=== PATIENT | female | born 1965 | race Caucasian/White ===

== ENCOUNTER → 2020-06-25 | Outpatient (CLI) | payer OTHER, BC ==
[~2020-06-25] MED LIST: ADVAIR 250-501 EACH INH; ATARAX PO; BACLOFEN20 MG PO; FOLIC ACID1 MG PO; GEODON40 MG PO; LAMICTAL100 MG PO; LEXAPRO 10 MG T10 M2 PO; METHOTREXATE 22.5 MG PO; NEURONTIN 300M300 M2 PO; NEURONTIN300 MG PO; OMEPRAZOLE40 MG PO; PROAIR HFA8.5 GM INH; PROZAC20 M1 PO; REMICADE 1100 MG/VIA; REQUIP XL6 MG PO; ZYPREXA 10 MG T10 MG PO
== END ==
LOC: LAB 10:45
DX: Z01.812 Encounter for preprocedural laboratory examination (principal); Z20.828 Contact with and (suspected) exposure to other viral communicable diseases

== ENCOUNTER 2020-07-02 06:06 | Inpatient (IN) | payer OTHER, BC ==
[2020-06-25 13:32] LABS: ABSOLUTE NEUTROPHILS 4.5 thou/uL (1.4-8.2); BASOPHILS 0.9 % (0.0-2.0); EOSINOPHILS 2.3 % (0.0-3.0); HEMATOCRIT 36.3 % (37.0-47.0); HEMOGLOBIN 12.1 gm/dL (12.0-15.0); MCH 29.1 pg (26.0-34.0); MCHC 33.3 g/dL (28.0-37.0); MCV 87.3 fL (80.0-100.0); MONOCYTES 7.2 % (1.0-8.0); PLATELET COUNT 456 thou/uL (150-400); POLYS 63.6 % (36.0-66.0); RBC 4.16 mil/uL (4.20-5.00); URINE BILIRUBIN NEGATIVE (Negative); URINE BLOOD NEGATIVE (Negative); URINE CLARITY CLEAR; URINE COLOR YELLOW; URINE GLUCOSE-RANDOM* NEGATIVE (Negative); URINE KETONES NEGATIVE (Negative); URINE LEUKOCYTES-REFLEX NEGATIVE (Negative); URINE NITRITE-REFLEX NEGATIVE (Negative); URINE PROTEIN (DIPSTICK) NEGATIVE (Negative); URINE SPECIFIC GRAVITY <= 1.005 (1.005-1.035); URINE UROBILINOGEN 0.2 E.U./dl (0.2-1.0); WBC 7.1 thou/uL (4.0-11.0)
[2020-06-25 13:44] LABS: PROTIME 9.9 Seconds (9.3-11.4)
[2020-06-25 13:57] LABS: ALBUMIN 2.8 g/dL (3.4-5.0); CALCIUM 8.5 mg/dL (8.5-10.1); CREATININE 0.9 mg/dL (0.6-1.0); MAGNESIUM 1.9 mg/dL (1.8-2.4); POTASSIUM 4.5 mmol/L (3.5-5.1); TOTAL BILIRUBIN 0.2 mg/dL (0.2-1.0); TOTAL PROTEIN 7.1 g/dL (6.4-8.2)
[~2020-07-02] VITALS: Ht 162.6 cm; Wt 72.6 kg
[2020-07-02 07:47] VITALS: BP 126/68
[2020-07-02 12:30] VITALS: BP 130/70
--- NOTE | 2020-07-02 13:30 | NUR ---
ASSESSMENT: CM REVIEWED CHART. CM SPOKE WITH PATIENT. PT IS HERE DUE TO NECK PAIN. PT REPORTS THAT SHE WAS LIVING WITH HER MOTHER IN A HOUSE IN [facility] BUT REPORTS IT FLOODED SO THEY HAVE BEEN STAYING WITH HER SISTER WHO ALSO LIVES IN [place], [place]. SHE REPORTS SHE PLANS ON LIKELY GOING BACK THERE AT DISCHARGE. PT REPORTS SHE IS NORMALLY INDEPENDENT WITH ADLS AND AMBULATION. PT REPORTS THAT SHE HAS NOT HAD HH IN THE PAST NOR BEEN TO A SNF. PT REPORTS HER PCP IS DR. SANDEEP DIAZ IN [place], [place]. CM WILL CONTINUE TO FOLLOW TO ASSIST NEEDED.
--- NOTE | 2020-07-02 15:40 | O ---
[facility] [place] [address] OPERATIVE REPORT Name: SKYE MARIA Room #: 439-P ADM IN M.R.#: [id number] Admission: 07/02/20 Attend Phys: Frank Cota MD Discharge: Date of : 69 Report #: [id number] THIS REPORT FOR: cc: AISHA ROSAS NP, Glenn M MD ~ CC: AISHA Cota DATE OF SERVICE: 07/02/2020 PREPROCEDURAL DIAGNOSES: Degenerative disk disease, spinal stenosis, foraminal stenosis, herniated nucleus pulposus at C3-C4, C4-C5, C5-C6 and C6-C7. The patient also has a spondylolisthesis with instability at C3-C4 and radiculopathy at C3-C4, C4-C5, C5-C6, C6-C7 and myelomalacia at C4-C5. The patient has neck pain in addition. POSTPROCEDURAL DIAGNOSES: Degenerative disk disease, spinal stenosis, foraminal stenosis, herniated nucleus pulposus at C3-C4, C4-C5, C5-C6 and C6-C7. The patient also has a spondylolisthesis with instability at C3-C4 and radiculopathy at C3-C4, C4-C5, C5-C6, C6-C7 and myelomalacia at C4-C5. The patient has neck pain in addition. PROCEDURES: Anterior total diskectomy C3-C4, anterior total diskectomy C4-C5, anterior total diskectomy C5-C6, anterior total diskectomy C6-C7, anterior partial corpectomy C3, anterior partial corpectomy C4, anterior partial corpectomy C5, anterior partial corpectomy C6, posterior neural foraminal decompressions C3-C4, posterior neural foraminal decompression C4-C5, posterior neural foraminal decompression C5-C6, posterior neural foraminal decompression C6-C7, anterior interbody fusion C3-C4, anterior interbody fusion C4-C5, anterior interbody fusion C5-C6, anterior interbody fusion C6-C7, insertion of interbody prosthesis C3-C4, insertion of interbody prosthesis C4-C5, insertion of interbody prosthesis C5-C6, insertion of interbody prosthesis C6-C7, autograft, anterior plate instrumentation C3-C7, synthetic bone graft wood bucker. SURGEON: Frank Cota MD GARNETT MACHINE OPERATOR SURGEON: FRANCI Carlton ANESTHETIC: General via endotracheal tube. INDICATIONS: The patient has had intractable neck and arm pain. She also has evidence of upper motor neuron injury with myelomalacia noted at the C4-C5 level due to spinal stenosis. The patient has combination of spurring and osteodiscal complexes, varying degrees of herniation at C3-C4, C4-C5, C5-C6, C6-C7. The patient has truly proved refractory to multimodality conservative management. [address] [address] OPERATIVE REPORT Name: SKYE MARIA Room #: 439-P [facility] IN M.R.#: [id number] Admission: 07/02/20 Attend Phys: Frank Cota MD Discharge: Date of : 69 Report #: [id number] She has requested we proceed with operative intervention. She understands the risks of surgery to be ; DVT; pulmonary embolism; quadriplegia; loss of the use of the arms, the legs; numbness; tingling; weakness; incoordination; loss of the ability to ambulate; loss of bowel and bladder function; loss of sexual function; possibility of bleeding; bleeding requiring transfusion; transfusion attendant risks of AIDS and hepatitis; infection; instability; need for revision; prolonged hospital stay; dural leak; spinal headache and again, she requested we proceed. She also understands the chance of infection, the possible need for revisions and supra and sub-adjacent level breakdown. DESCRIPTION OF PROCEDURE: The patient was brought to the operating room and administered general anesthesia via endotracheal tube. Esophageal stethoscope was placed. Perioperative antibiotics were received. The patient received 10 of Decadron. The patient had compression stockings and DENNIS hose placed on the lower extremities. She was positioned on the Wallace table in the prone position with all bony prominences padded appropriately. Care was taken to ensure the shoulders not abducted and in fact, the arms are carefully padded, tucked and taped to the side. This included the right arm, which had recently undergone tendon surgery and was in a coaptation splint. With the arm carefully padded, we taped the arms at the side. We maintained the neck in a neutral position at all times. We positioned the lower extremities over pillows and the heels on gel and in the neck neutral position, we defatted the anterior aspect of the neck with alcohol and brought in fluoroscopy. Fluoroscopy was used to pick the skin fold on the left, most approximating the C4 level. With that skin fold chosen, we were able to then sterilely prep and drape, infiltrate the skin with 0.5% Marcaine, 1:200,000 epinephrine and sharp dissection was continued down through the skin and the subcutaneous tissues to the level of the platysma. The platysma was then elevated and split in combination in line with its fibers and at the anterior border of the sternocleidomastoid and the sternocleidomastoid was elevated off the oblique strap muscles and middle cervical fascia. A standard anteromedial approach to the spine was fashioned locating the carotid and beginning blunt dissection with a Kitner dissector just medial to the carotid. We followed the fibrofatty plane over to the spine, gently retracted the esophagus with handheld Cloward while we continued the dissection, sweeping the fibrofatty tissue from the anterior aspect of the spine until the disk spaces were noted. We placed a bent spinal needle in the most accessible disk space and brought in fluoroscopy and confirmed that we were at the C4-C5 level. We then performed a subperiosteal dissection from C4-C7. With the subperiosteal dissection complete, we started at C3-C4. We inserted distraction pins, but found that we could achieve very little distraction. The bone quality was moderate. There was fear of cutout of the pins with more aggressive distraction. With the pins in place and the distraction applied, we began removing disk material after an anterior annulectomy was made with cautery. We used a pituitary rongeur and a straight micro curette to remove [address] [address] OPERATIVE REPORT Name: SKYE MARIA Room #: 9-[facility] IN M.R.#: [id number] Admission: 07/02/20 Attend Phys: Frank Cota MD Discharge: Date of : 69 Report #: [id number] disk material until we had dissected disk and cartilaginous endplate back to the posterior longitudinal ligament. Again, noting very little distraction and significant osteodiscal complex, we began resection and partial corpectomy of C3. The inferior 30% of C3 was removed with a combination of Kerrison and Leksell resection combined with a high speed drill. When complete, we had removed the inferior 30-35% of C3. This gave us excellent posterior exposure. The spondylitic ridge of C4 was removed with a 2 mm Kerrison after the ligament was dissected free with a micro curettes under loupe magnification and headlight illumination. We then resected the medial half of the uncovertebral joints bilaterally to effect a posterior neural foraminal decompression of the C3 nerve roots. With the nerve roots probing completely free and the spondylitic ridge of C4 removed and the spondylitic ridge and canal intrusion from C3 removed by the partial corpectomy, we then templated the appropriate sized prosthesis, packed it with the patient's own bone from the partial corpectomy, tamped it into place and released the distraction. The distraction pins were then removed and the holes in the bone were tamponaded with bone wax. The prosthesis in place and the distraction removed, we removed the distraction pin from C3 and moved it to C5. The process was then repeated. We performed a diskectomy. We performed an inferior partial corpectomy of the inferior 30-35% of C4. With the osteophytes removed, we then performed medial half uncovertebral joint resections to effect a posterior neural foraminal decompression. We resected the spondylitic ridge of C5, templated the appropriate sized prosthesis, packed it with the patient's own bone from the partial corpectomy, tamped it into place under distraction at the C4-C5 level, moved the distraction pin from C4 to C6, performed an anterior diskectomy, performed a partial corpectomy of C5 removing the anterior inferior 35% of C5. We then performed medial half uncovertebral joint resections for posterior neural foraminal decompression, templated the appropriate size PEEK prosthesis and tamped it into place, packed with the patient's own bone from the partial corpectomy. On one final occasion, we moved to the C6-C7, placed the distraction pins, performed the diskectomy, removed the cartilaginous endplate, removed the inferior 30% of C6, performed medial half uncovertebral joint resections for posterior neural foraminal decompression, removed the spondylitic ridge of C7, scuff the endplates with a high-speed drill as we had at the other levels, tamped in the appropriate sized prosthesis with the patient's own bone packing that prosthesis. With the autograft placed at all levels, we then applied a plate. It required additional contouring to obtain the appropriate cervical lordosis and it was tacked to the front of the spine with a 12 mm screw. Fluoroscopy was brought in and we noted good position of the plate in the AP plane. It was well applied on the lateral. It did appear that we could go to 16 mm screws based on the depth of penetration of the 12 mm. So, we used the converging drill guide and placed 2 converging holes and subsequently 2 screws into C3, C4, C5, C6 and C7. With the final turns of the screws invoked the locking mechanism of the plate as we secured the plate to the anterior cortex of the vertebrae. We then checked again with AP and lateral fluoroscopy view and it showed our interbody prostheses to be superbly placed. It showed episcopalian of disk height and cervical lordosis at all levels. It [address] [address] OPERATIVE REPORT Name: SKYE MARIA Room #: 439-P ADM IN M.R.#: [id number] Admission: 07/02/20 Attend Phys: Frank Cota MD Discharge: Date of : 69 Report #: [id number] also showed that the screws were of appropriate trajectory and length. It was felt to be technically optimal. We then irrigated with a liter of antibiotic-containing solution, obtained meticulous hemostasis, closed the area of the platysma with 3-0 Vicryl, the subcutaneous with 3-0 Vicryl, and the skin with a running 4-0 Monocryl and dressed it with benzoin, Steri-Strips, Xeroform, sterile dressings, sponges and a bioclusive. The patient tolerated the procedure well, placed in a soft collar. Final blood loss was 75 mL. The patient is in a collar. No specimen. No complications. Physiologically stable throughout the entire procedure, being transported to the recovery room for closer neurovascular observation, continue prophylactic antibiotic and serial neurovascular exams. <ELECTRONICALLY SIGNED> By: Frank Cota MD 07/02/20 [id number] Frank Cota MD /nt
[2020-07-02 16:25] VITALS: BP 118/71
--- NOTE | 2020-07-02 17:39 | NUR ---
PATIENT ADMITTED FROM OR WITH ANTERIOR CERVICAL DISCECTOMY FUSION 3-7, PATIENT ALERT AND ORIENTED, C/O PAIN WITH NECK AREA, /, INSTRUCTED PATIENT TO PUSH REFRACTORY TILE HELPER BUTTON. PATIENT HAS LEFT FOREARM IV IN PLACE WITH IV FLUIDS ATARTED BY IVETT/RN PRIMARY NURSE. PATIENT HAS DRESSING TO RIGHT ARM, HAD RECENT SURGERY TO RIGHT HAND TENDON. O2 AT 2 LITERS/NC IN PLACE. ADMISSION COMPLETED, REPORT GIVEN TO IVETT Hilliard/BONILLA.
[2020-07-02 22:30] VITALS: BP 123/70
--- NOTE | 2020-07-03 03:21 | NUR ---
ASSUMED PT CARE AT 1900.PT WAS OBSERVED LYING ON HER BED WATCHING TV AT SHIFT CHANGE.PT ON DEPENDENCY CASE MANAGER PUMP.DRSG TO HER THROAT C/D/I WITH A SOFT COLLAR.THAKUR CATH TO DD.R ARM IN SOFT CAST,ELEVATED WITH A PILLOW.IVF INFUSING ORDERED.NO BM SO FAR.PT SLEEPING ON HER BED AT THIS TIME.FALL PRECAUTIONS IN PLACE,CALL LIGHT WITHIN REACH.
[2020-07-03 04:00] VITALS: BP 132/82
[2020-07-03 05:36] LABS: ABSOLUTE NEUTROPHILS 8.9 thou/uL (1.4-8.2); BASOPHILS 0.3 % (0.0-2.0); EOSINOPHILS 0.4 % (0.0-3.0); HEMATOCRIT 36.9 % (37.0-47.0); HEMOGLOBIN 12.1 gm/dL (12.0-15.0); LYMPHOCYTES 16.7 % (24.0-44.0); MCH 29.1 pg (26.0-34.0); MCHC 32.7 g/dL (28.0-37.0); MCV 89.1 fL (80.0-100.0); MONOCYTES 7.8 % (1.0-8.0); PLATELET COUNT 410 thou/uL (150-400); POLYS 74.8 % (36.0-66.0); RBC 4.15 mil/uL (4.20-5.00); RDW 16.4 % (10.5-14.5); WBC 11.9 thou/uL (4.0-11.0)
[2020-07-03 06:02] LABS: CALCIUM 8.2 mg/dL (8.5-10.1); CREATININE 0.7 mg/dL (0.6-1.0); POTASSIUM 4.4 mmol/L (3.5-5.1)
[2020-07-03 07:45] VITALS: BP 142/82
--- NOTE | 2020-07-03 14:25 | NUR ---
Assumed care of pt. at 0700. Pt. is calm and cooperative. Pt. was able to get up and move around quite a bit with PT. Pt.'s FREIGHT RATE ANALYST pump had no orders to DC so it ran through out the day until it ran out of fluids around 1400. Physician was notified, no orders given. New bag of morphine was ordered pt. through pharamacy until response is received. New bag intiated with same order parameters in place.
--- NOTE | 2020-07-03 14:27 | NUR ---
ON-GOING ASSESSMENT: LILLY REVIEWED CHART. [facility] HAS BEEN CONSULTED FOR PATIENT. LILLY SPOKE WITH Amy KUMARI WHO REPORTS THEY CAN LIKELY ACCEPT PATIENT BUT STATES SHE IS VERY HIGH LEVEL SO THEY WILL NEED TO BE CONTACTED ON THE DAY PATIENT IS STABLE FOR DISCHARGE IN ORDER TO SEE IF THEY CAN ACCEPT. ONCE PATIENT IS MEDICALLY STABLE TO DISCHARGE CONTACT Amy KUMARI ON CELL:[phone] AND THEY WILL STATE WHETHER OR NOT THE CAN ACCEPT. IF THEY CANNOT ACCEPT PT WISHES TO GO TO [facility]. LILLY FAXED REFERRAL AND SPOKE WITH LUCIANA AND THEY CAN ACCEPT IF Amy CANNOT. IF PT IS UNABLE TO GO TO CONTACT LUCIANA AT [facility] ON HER CELL [phone] (MAY NEED TO DIAL ONE IT IS IN [place], [place]). SHE WILL THEN ARRANGE TRANSPORTATION. DISCHARGE ORDERS WILL NEED TO BE FAXED TO THEM AT: [phone] AND CHART COPY SENT. LILLY NOTIFIED PT.
--- NOTE | 2020-07-03 16:21 | NUR ---
CM SPOKE WITH ON 5N AND STATING THEY LIKELY CANNOT ACCEPT PATIENT. PLAN IS FOR PATIENT TO GO TO SNF ([facility] IN [place], [place]). ONCE DISCHARGE ORDERS ARE IN PLEASE CALL LUCIANA THE ADMISSIONS [facility] AT [phone] (MAY NEED TO DIAL SHE IS IN [place], [place]). SHE WILL THEN ARRANGE TRANSPORTATION. FAX DISCHARGE ORDERS TO THEIR FAX [phone]. CHART COPY WILL NEED TO BE SENT WITH PATIENT.
[2020-07-03 16:25] VITALS: BP 121/75
--- NOTE | 2020-07-03 16:54 | NUR ---
DR. BELLO SAW Pt FOR FOLLOW UP THIS AFTERNOON. Pt WANTING TO GO TO SOMEWHERE FOR ABOUT A MONTH FOR REHAB THEREFORE SNF MORE APPROPRIATE AT THIS TIME. CASE MGMT/SW AWARE. PLANNING FOR D/C TO SNF AT THIS TIME. THANK YOU FOR THIS REFERRAL.
[2020-07-03 20:03] VITALS: BP 145/75
--- NOTE | 2020-07-04 01:22 | NUR ---
PT WAS SITTING UP ON HER BED AT START OF SHIFT.NO C/O PAIN NOTED.DRSG TO HER THROAT C/D/I WITH SOFT COLLAR OVER IT.THAKUR CATH IN PLACE.L ARM IN A SPLINT,ELEVATED WITH A PILLOW.PT ABLE TO MAKE HER NEEDS KNOWN.FALL PRECAUTIONS IN PLACE.CALL LIGHT WITHIN REACH.
[2020-07-04 04:12] VITALS: BP 114/59
[2020-07-04 05:27] LABS: BASOPHILS 0.3 % (0.0-2.0); EOSINOPHILS 0.5 % (0.0-3.0); HEMATOCRIT 33.3 % (37.0-47.0); MCH 29.1 pg (26.0-34.0); MCV 88.1 fL (80.0-100.0); MONOCYTES 7.1 % (1.0-8.0); POLYS 80.1 % (36.0-66.0); RBC 3.78 mil/uL (4.20-5.00); RDW 15.9 % (10.5-14.5)
[2020-07-04 05:31] LABS: PLATELET COUNT 330 thou/uL (150-400)
[2020-07-04 05:45] LABS: CALCIUM 8.6 mg/dL (8.5-10.1); CREATININE 0.9 mg/dL (0.6-1.0); POTASSIUM 4.9 mmol/L (3.5-5.1)
[2020-07-04 07:30] VITALS: BP 122/64
[2020-07-04] MEDS ORDERED: PERCOCET 10-321 EACH PO (08:59)
--- NOTE | 2020-07-04 12:39 | NUR ---
PT DISCHARGING TODAY TO [facility] IN [place], [place] FAXED DC ORDERS/SUMMARY TO FACILTY SPOKE WITH LUCIANA IN ADM SHE RECEIVED ORDERS AND TRANSPORT ARRANGED BY LYNNE CASEY AND 2L 02 FOR [id number] HEALTH AND WELLNESS INSTRUCTOR. NOTIFIED PT'S MOM OF DISCHARGE AND TIME OF TRANSPORT. UNIT NOTIFIED AND CHART COPY BY US.
--- NOTE | 2020-07-04 13:49 | NUR ---
Assumed care of pt. at 0700. Pt. is calm and cooeprative. Pt. is anticipating discharge to skilled facility today. Called facility and spoke with Sarah in admissions. Faxed discharge information and prescriptions to Sarah. Transport was arranged. Pt. left facility with transport and all belongings at 1230. Pt. had IV discontinued and carrillo catheter removed.
== END 2020-07-04 13:16 | DRG 472 ==
LOC: 4S 06:06 → TBA 06:06 → PRE 09:50 → 4S 12:21 → PRE 12:42 → 4S 07-04 13:16
PROVIDERS: Nurse Practitioner
PROC: 0RT30ZZ Resection of Cervical Vertebral Disc, Open Approach (ICD-10-PCS; principal; 2020-07-02)
PROC: 0RG20AJ Fusion of 2 or more Cervical Vertebral Joints with Interbody Fusion Device, Posterior Approach, Anterior Column, Open Approach (ICD-10-PCS; principal; 2020-07-02)
PROC: 01N10ZZ Release Cervical Nerve, Open Approach (ICD-10-PCS; principal; 2020-07-02)
DX: M48.02 Spinal stenosis, cervical region (principal); G95.89 Other specified diseases of spinal cord; M43.12 Spondylolisthesis, cervical region; J44.9 Chronic obstructive pulmonary disease, unspecified; M06.9 Rheumatoid arthritis, unspecified; F43.10 Post-traumatic stress disorder, unspecified; F32.9 Major depressive disorder, single episode, unspecified; M47.9 Spondylosis, unspecified; F19.10 Other psychoactive substance abuse, uncomplicated; M50.11 Cervical disc disorder with radiculopathy, high cervical region; Z88.0 Allergy status to penicillin; Z88.1 Allergy status to other antibiotic agents; Z88.8 Allergy status to other drugs, medicaments and biological substances
CPT/HCPCS: 10102; 50010; 50101; 50402; 50455; 51725; 56526; 56528; 62110; 62900; 70005

== ENCOUNTER → 2020-07-17 | Outpatient (CLI) | payer OTHER, BC ==
[~2020-07-17] MED LIST changes: +PERCOCET 10-321 EACH PO
== END ==
LOC: RAD 09:26
DX: M54.9 Dorsalgia, unspecified (principal)

== ENCOUNTER → 2020-09-11 | Outpatient (CLI) | payer OTHER, BC | LOC: RAD 13:10 | DX: M43.22 Fusion of spine, cervical region (principal) ==

== ENCOUNTER → 2020-10-19 | Outpatient (CLI) | payer OTHER, BC | LOC: RAD 10:22 | PROVIDERS: ATTEND Physician Assistant | DX: Z98.890 Other specified postprocedural states (principal) ==